=== PATIENT | male | born 1965 | race Caucasian/White ===

== ENCOUNTER 2018-01-16 09:34 | Outpatient (CLI) | payer OTHER ==
--- NOTE | 2018-01-16 10:44 | RAD ---
FOUR VIEWS CERVICAL SPINE: Date: 01-16-18 Comparison: 01-17-11 History: Neck pain. Prior cervical spine surgery. FINDINGS: Anterior discectomy and fusion hardware is present at C6-7, not significantly changed when compared t o the prior exam. Open mouth odontoid view demonstrates a normal appearing dens and C1-2 articulation . There is normal cervical vertebral body height and alignment. No prevertebral soft tissue swelling. There is mild disc space narrowing and anterior osteophyte formation at C5-6. There is mild degenera tive change at the atlantoaxial interspace. IMPRESSION: Degenerative and post-operative changes of the cervical spine. No acute findings are seen. POS: [facility]
== END 2018-01-16 09:35 | disposition home or self-care (01) ==
LOC: TBSIIMAG 09:34
PROVIDERS: ATTEND Neurological Surgery
DX: M47.22 Other spondylosis with radiculopathy, cervical region (principal); Z98.1 Arthrodesis status
CPT/HCPCS: 72040

== ENCOUNTER 2018-01-30 07:28 | Outpatient (CLI) | payer OTHER ==
--- NOTE | 2018-01-30 09:02 | MRI ---
MRI CERVICAL SPINE: Technique: Multiplanar, multisequence MRI images were obtained of the cervical spine. Indications: Cervical radiculopathy. Cervical surgery 8 years ago. Comparison: 10-31-10 FINDINGS: Anterior fusion procedure has been performed since the prior exam at C6-7. Anterior plate and screws are present at this level. There is interbody implant with partial fusion at this level. No significant abnormality at C2-3. C3-4: Mild disc bulge and spondylosis flattens the thecal sac. Mild left foraminal narrowing secondar y to uncinate hypertrophy. C4-5: Normal spondylosis. There is bilateral foraminal encroachment due to facet and uncinate hypertr ophy, slightly more prominent on the right. C5-6: Disc bulge and spondylitic change abutt the anterior cord. Bilateral foraminal narrowing second carlee to facet and uncinate hypertrophy, more prominent on the left. C6-7: Prior anterior fusion procedure. Mild posterior spondylosis flattens the thecal sac. No signifi cant cord impingement. The foramina appear open. C7-T1: No significant spondylosis. Anterior subarachnoid space is preserved. T1-2: There is evidence of a diffuse disc bulge seen on sagittal images. This level is not evaluated on axial sequences. This diffuse bulge appears to abut and mildly flatten the anterior cord. The cervical cord signal is normal. IMPRESSION: 1. Prior anterior fusion procedure at C6-7 noted as described above. 2. Mild spondylosis at C3-4 and C5-6 with foraminal encroachment as described above. 3. Sagittal images show a broad based bulge abutting the cord at T1-2. POS: [facility]
== END 2018-01-30 07:29 | disposition home or self-care (01) ==
LOC: TBSIIMAG 07:28
PROVIDERS: ATTEND Neurological Surgery
DX: M47.22 Other spondylosis with radiculopathy, cervical region (principal); M51.84 Other intervertebral disc disorders, thoracic region; Z98.1 Arthrodesis status
CPT/HCPCS: 72141